=== PATIENT | female | born 1965 | race African-American/Black ===

== ENCOUNTER 2018-06-17 12:12 | Emergency (ER) | payer OTHER ==
[2018-06-17 12:37] VITALS: BP 127/71
--- NOTE | 2018-06-17 12:44 | UC ---
Back Pain HPI - HPI Summary HPI Summary: Pt. is a 53-year-old female who presents to the for right low back pain that radiates into right leg started yesterday. Patient doesn't recall any specific injuries or falls. She does work in housekeeping for a local hotel. Pain is worse with movement and bending. Denies numbness, tingling or weakness in legs. Denies urinary sxs or bowel or bladder incontinence. Sxs are mild in severity. No past medical hx. Pt. states she took Tylenol last night without improvement. - History of Current Complaint Chief Complaint: UCBackPain Stated Complaint: LOWER BACK PAIN Time Seen by Provider: 06/17/18 12:40 Hx Obtained From: Patient Pain Intensity: 8 - Allergies/Home Medications Allergies/Adverse Reactions: Allergies Allergy/AdvReac Type Severity Reaction Status Date / Time procaine Allergy Itching Verified 06/17/18 12:38 PMH/Surg Hx/FS Hx/Imm Hx Previously Healthy: Yes - Surgical History Surgical History: Yes Surgery Procedure, Year, and Place: 1996 LAPAROSCOPY AND LAPARTOMY IN [facility]. APPENDECTOMY - Family History Known Family History: Positive: Non-Contributory - Social History Occupation: Employed Full-time Lives: With Family Alcohol Use: Occasionally Substance Use Type: None Smoking Status (MU): Never Smoked Tobacco Have You Smoked in the Last Year: No Review of Systems All Other Systems Reviewed And Are Negative: Yes Constitutional: Positive: Negative. Negative: Fever Genitourinary: Positive: Negative Neurovascular: Positive: Negative Musculoskeletal: Positive: Other: - Right low back pain Neurological: Positive: Negative. Negative: Weakness, Paresthesia, Numbness Psychological: Positive: Negative Is Patient Immunocompromised?: No Physical Exam Triage Information Reviewed: Yes Appearance: Well-Appearing - Pt. sitting on exam table in NAD. Moved easily from chair to table. Vital Signs: Initial Vital Signs Temp 97.4 F 06/17/18 12:34 Pulse 72 06/17/18 12:34 Resp 17 06/17/18 12:34 BP 127/71 06/17/18 12:34 Pulse Ox 100 06/17/18 12:34 Eye Exam: Normal Eyes: Positive: Conjunctiva Clear Neck exam: Normal Neck: Positive: Supple Musculoskeletal: Positive: Other: - Pain on palpation over right SI joint. 5/5 strength in bilateral LEs with flexion and dorisflexion. 2/4 DT patellar reflexes. No neurosensory deficits. negative straight leg test bilaterally. Neurological Exam: Normal Neurological: Positive: Alert Psychological Exam: Normal Back Pain Course/Dx - Course Course Of Treatment: Patient presenting with atraumatic back pain. She does have a physical job. She has no neurological deficits or evidence of cauda equina syndrome. She is afebrile. Based on symptoms and exam most consistent with sciatica. Given a dose of Toradol. We'll prescribe her a few days of Flexeril and naproxen. Advised to apply warm compresses. To avoid heavy lifting. Work excuse given. To call family doctor for close follow-up if symptoms persist. To return to the urgent care or go to the ear symptoms change or worsen. Patient understands and agrees with plan. - Differential Dx/Diagnosis Differential Diagnosis/HQI/PQRI: Arthritis, Cauda Equina Syndrome, Compressive Cord Syndrome, Epidural Abscess, Herniated Disc, Strain, Sprain Provider Diagnosis: Sciatica Discharge - Sign-Out/Discharge Documenting (check all that apply): Patient Departure All imaging exams completed and their final reports reviewed: No Studies - Discharge Plan Condition: Good Disposition: HOME Prescriptions: Cyclobenzaprine TAB* [Flexeril 10 MG TAB*] 10 mg PO TID #12 tab Naproxen [Naproxen 500 mg tab] 500 mg PO BID #20 tablet Patient Education Materials: Sciatica (ED), Lower Back Exercises (ED) Forms: *Work Release Referrals: Dio Edgar MD [Primary Care Provider] - Additional Instructions: Call your PCP today for a follow up appointment Take medication as directed Apply warm compresses to back Avoid heavy lifting Return to or go to ER if symptoms change or worsen - Billing Disposition and Condition Condition: GOOD Disposition: Home
[2018-06-17] MEDS ORDERED: Ketorolac INJ* 30 MG/ML 1 ML VIAL IM ONE (12:51)
== END 2018-06-17 13:28 | disposition home or self-care (01) ==
LOC: UCEAST 12:12
DX: M54.41 Lumbago with sciatica, right side (principal); Z88.4 Allergy status to anesthetic agent
CPT/HCPCS: 96372; 99212; G0463; J1885